=== PATIENT | male | born 1970 | race Hispanic/Latino ===

== ENCOUNTER 2017-10-01 19:38 | Emergency (ER) | payer MEDICAID ==
[2017-10-01 20:31] VITALS: BP 111/79
[2017-10-01 21:19] LABS: Basophils # (Auto) 0.1 K/mm3 (0.0-0.1); Basophils % (Auto) 1.2 % (0.0-1.8); Eosinophils # (Auto) 0.4 K/mm3 (0.0-0.4); Eosinophils % (Auto) 3.6 % (0.0-4.3); Hematocrit 48.1 % (35.5-45.6); Hemoglobin 16.9 gm/dl (11.8-15.2); Lymphocytes # (Auto) 1.5 K/mm3 (1.2-5.4); Lymphocytes % (Auto) 14.5 % (13.4-35.0); Mean Corpuscular HGB Conc 35 % (32-34); Mean Corpuscular Hemoglobin 30 pg (28-32); Mean Corpuscular Volume 85 fl (84-94); Monocytes # (Auto) 0.6 K/mm3 (0.0-0.8); Monocytes % (Auto) 5.6 % (0.0-7.3); Platelet Count 196 K/mm3 (140-440); Red Blood Count 5.65 M/mm3 (3.65-5.03); Red Cell Distribution Width 13.8 % (13.2-15.2)
[2017-10-01 21:33] LABS: Alanine Aminotransferase 40 units/L (7-56); Albumin 4.3 g/dL (3.9-5); BUN/Creatinine Ratio 13; Blood Urea Nitrogen 10 mg/dL (9-20); Calcium 9.2 mg/dL (8.4-10.2); Hemolysis Index 5
--- NOTE | 2017-10-01 22:38 | XRay Report ---
FINAL REPORT EXAM: XR CHEST ROUTINE 2V HISTORY: c/o sob with dizziness TECHNIQUE: Two views of the chest were performed Comparison: None FINDINGS: Heart size is normal. Lungs are clear and well expanded without focal infiltrate or consolidation. There is no effusion. The imaged axial skeleton is unremarkable. Hilar contours are unremarkable. IMPRESSION: No acute cardiopulmonary disease identified.
--- NOTE | 2017-10-01 22:49 | Cat Scan Report ---
FINAL REPORT EXAM: CT HEAD/BRAIN WO CON HISTORY: c/o MANUEL and dizziness TECHNIQUE: CT head without contrast PRIORS: None. FINDINGS: No acute intra-axial or extra-axial hemorrhage is identified. There is no evidence of midline shift or mass effect. The ventricles and sulci are within normal limits. Martínez-white matter differentiation is intact. No acute parenchymal abnormalities seen. Bony calvarium is grossly intact. There near complete opacification the maxillary sinuses bilaterally IMPRESSION: Maxillary sinusitis likely acute on chronic No acute intracranial findings
[2017-10-01 22:59] LABS: Bilirubin,Urine NEG (Negative); Blood,Urine NEG (Negative); Color,Urine Yellow (Yellow); Mucus,Urine 3+ /HPF; Protein,Urine <15 mg/dL mg/dL (Negative); Urobilinogen,Urine < 2.0 mg/dL (<2.0)
== END 2017-10-02 00:34 | disposition left against medical advice (07) ==
LOC: ED 19:38
DX: R11.2 Nausea with vomiting, unspecified (principal); R53.83 Other fatigue; Z53.21 Procedure and treatment not carried out due to patient leaving prior to being seen by health care provider
CPT/HCPCS: 36415; 70450; 71046; 80053; 81001; 85025; 93005; 93010